=== PATIENT | female | born 1990 | race Caucasian/White ===

== ENCOUNTER 2018-10-27 12:51 | Emergency (ER) | payer BC ==
[~2018-10-27] VITALS: Ht 165.1 cm; Wt 100.2 kg
[~2018-10-27 12:51] MED LIST: IMITREX100 MG PO
--- OUTSIDE RECORDS SUMMARY | 2018-10-27 12:53 | XMS REPORT ---
Author Author Admin, [place] Organization [facility] Address [address] [place] [address] Phone Allergies, Adverse Reactions, Alerts Allergy Name Reaction Description Start Date Severity Status Provider No Known Allergies Amna Quiroz CMA Conditions or Problems Problem Name Problem Code Onset Date Status Entry Date Provider Comment Standard Description Annotate ADHD, PREDOMINANTLY INATTENTIVE PRESENTATION, MILD Active Tia Hudson PHD Attention deficit disorder of childhood without mention of hyperactivity ADHD, PREDOMINANTLY INATTENTIVE PRESENTATION, MODERATE Active Michael Dowell MD Attention deficit disorder of childhood without mention of hyperactivity DEPRESSIVE DISORDER, MAJOR, RECURRENT EPISODE, MODERATE Active Michael Dowell MD Major depressive disorder, recurrent episode, moderate degree Tobacco user 305.1 Active Michael Dowell MD Tobacco use disorder ANXIETY DISORDER, UNSPECIFIED Active 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 Anxiety state, unspecified DEPRESSIVE DISORDER, UNSPECIFIED Active 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 Palpitations 785.1 Active Aren Quiroz MD Palpitations URI 465.9 Active Aren Quiroz MD Acute upper respiratory infections of unspecified site Annual exam V70.0 Active Aren Quiroz MD Routine general medical examination at a health care facility Weight gain 783.1 Active Mckenzie Mai MD Abnormal weight gain Family history of thyroid cancer V16.8 Active Aren Quiroz MD Family history of other specified malignant neoplasm Overweight 278.02 Active Aren Quiroz MD Overweight Chronic low back pain 724.2 Active Aren Quiroz MD Lumbago Migraine 346.90 Active Aren Quiroz MD Migraine, unspecified, without mention of intractable migraine, without mention of status migrainosus Vaccination Against Influenza V04.81 Inactive Aren Quiroz MD Need for prophylactic vaccination and inoculation against influenza Vaccination Against Influenza ICD-V04.81 Inactive Aren Quiroz MD Medication List Medication Instructions Start Date Stop Date Generic Name NDC Status Provider Patient Instruction VYVANSE 40 MG ORAL CAPSULE Take 1 tab By Mouth Every Morning LISDEXAMFETAMINE DIMESYLATE 78393166997 Active Michael Dowell MD Active PROZAC 20 MG ORAL CAPSULE Take 1 tab By Mouth Every Morning FLUOXETINE HCL 74435423289 Active Michael Dowell MD Active SUMATRIPTAN SUCCINATE 100 MG ORAL TABLET take one tab by mouth at outset of migraine; may repeat in 2 hrs if needed SUMATRIPTAN SUCCINATE 72678452796 Active Aren Quiroz MD Active Advance Directives Directive Description Start Date DISCUSSED - NO DECISION MADE Immunizations Vaccine Administration Date Value Standard Description influenza immunization (Flu Vax) has been administered given influenza virus vaccine, unspecified formulation Vital Signs Date Name Value Unit Range Description blood pressure, diastolic 80 mm[Hg] BP lerma blood pressure, systolic 121 mm[Hg] BP sys height E&M 65.50 [in_us] Bdy height pulse rate E&M 77 /min Heart rate weight E&M 226.25 [lb_av] Weight Measured blood pressure, diastolic 78 mm[Hg] BP lerma blood pressure, systolic 113 mm[Hg] BP sys height E&M 65.50 [in_us] Bdy height pulse rate E&M 88 /min Heart rate weight E&M 230 [lb_av] Weight Measured blood pressure, diastolic 84 mm[Hg] BP lerma blood pressure, systolic 136 mm[Hg] BP sys height E&M 65.50 [in_us] Bdy height pulse rate E&M 88 /min Heart rate weight E&M 233.38 [lb_av] Weight Measured blood pressure, diastolic 79 mm[Hg] BP lerma blood pressure, systolic 122 mm[Hg] BP sys height E&M 65.50 [in_us] Bdy height pulse rate E&M 89 /min Heart rate weight E&M 233.25 [lb_av] Weight Measured blood pressure, diastolic 78 mm[Hg] BP lerma blood pressure, systolic 115 mm[Hg] BP sys height E&M 65.50 [in_us] Bdy height pulse rate E&M 92 /min Heart rate respiratory rate E&M 18 /min Resp rate temperature E&M 98 [degF] Body temperature weight E&M 232 [lb_av] Weight Measured blood pressure, diastolic 85 mm[Hg] BP lerma blood pressure, systolic 132 mm[Hg] BP sys height E&M 65.50 [in_us] Bdy height pulse rate E&M 87 /min Heart rate weight E&M 236.50 [lb_av] Weight Measured blood pressure, diastolic 86 mm[Hg] BP lerma blood pressure, systolic 133 mm[Hg] BP sys height E&M 65.5 [in_us] Bdy height pulse rate E&M 110 /min Heart rate weight E&M 234.13 [lb_av] Weight Measured blood pressure, diastolic 84 mm[Hg] BP lerma blood pressure, systolic 122 mm[Hg] BP sys height E&M 65 [in_us] Bdy height pulse rate E&M 101 /min Heart rate respiratory rate E&M 18 /min Resp rate temperature E&M 97.8 [degF] Body temperature weight E&M 229.25 [lb_av] Weight Measured blood pressure, diastolic 86 mm[Hg] BP lerma blood pressure, systolic 126 mm[Hg] BP sys height E&M 65 [in_us] Bdy height pulse rate E&M 101 /min Heart rate respiratory rate E&M 18 /min Resp rate temperature E&M 98.2 [degF] Body temperature weight E&M 229.25 [lb_av] Weight Measured blood pressure, diastolic 81 mm[Hg] BP lerma blood pressure, systolic 123 mm[Hg] BP sys height E&M 65 [in_us] Bdy height pulse rate E&M 96 /min Heart rate respiratory rate E&M 18 /min Resp rate temperature E&M 98.1 [degF] Body temperature weight E&M 230 [lb_av] Weight Measured Diagnostic Results Date Name Value Unit Range Description Lab Report: TSH Rfx on Abnormal to Free T4 - Chemistry thyroid stimulating hormone, serum 1.970 u[iU]/mL 0.450-4.500 Lab Report: CBC With Differential/Platelet, Comp. Metabolic Panel (14), ... - Chemistry very low density lipoproteins 37 mg/dL 5-40 chloride, serum 102 mmol/L 96-106 urea nitrogen, blood 9 mg/dL 6-20 Lab Report: CBC With Differential/Platelet, Comp. Metabolic Panel (14), ... - Urinalysis leukocyte esterase, urine, by dipstick Negative Negative Lab Report: CBC With Differential/Platelet, Comp. Metabolic Panel (14), ... - Hematology mean corpuscular hemoglobin concentration, RBC 33.7 G/DL % 31.5-35.7 erythrocyte (RBC) count 4.29 X10E6/UL 10*6/mm3 3.77-5.28 Lab Report: CBC With Differential/Platelet, Comp. Metabolic Panel (14), ... - Urinalysis urine color Yellow Yellow Lab Report: CBC With Differential/Platelet, Comp. Metabolic Panel (14), ... - Chemistry Absolute Neutrophils 4.4 X10E3/UL 10*3/uL 1.4-7.0 Lab Report: CBC With Differential/Platelet, Comp. Metabolic Panel (14), ... - Urinalysis bilirubin, urine Negative Negative Lab Report: CBC With Differential/Platelet, Comp. Metabolic Panel (14), ... - Chemistry LDL cholesterol, serum 127 mg/dL 0-99 urea nitrogen/creatinine ratio, serum 14 9-23 Lab Report: CBC With Differential/Platelet, Comp. Metabolic Panel (14), ... - Hematology mean corpuscular volume, RBC 94 fL 79-97 Lab Report: CBC With Differential/Platelet, Comp. Metabolic Panel (14), ... - Chemistry HDL cholesterol, serum 41 mg/dL >39 Lab Report: CBC With Differential/Platelet, Comp. Metabolic Panel (14), ... - Hematology monocytes as percent of blood leukocytes 5 % Not Estab. Lab Report: CBC With Differential/Platelet, Comp. Metabolic Panel (14), ... - Chemistry albumin/globulin ratio, serum 1.7 1.2-2.2 creatinine, serum 0.66 mg/dL 0.57-1.00 cholesterol, serum 205 mg/dL 401-486 7218/06/19 bilirubin, serum, total 0.5 mg/dL 0.0-1.2 Lab Report: CBC With Differential/Platelet, Comp. Metabolic Panel (14), ... - Hematology Eosinophil Absolute Count 0.5 X10E3/UL 10*3/uL 0.0-0.4 Lab Report: CBC With Differential/Platelet, Comp. Metabolic Panel (14), ... - Urinalysis appearance, urine Clear Clear Lab Report: CBC With Differential/Platelet, Comp. Metabolic Panel (14), ... - Chemistry aspartate aminotransferase (SGOT), serum 15 U/L 0-40 Lab Report: CBC With Differential/Platelet, Comp. Metabolic Panel (14), ... - Hematology red blood cell distribution width 13.1 % 12.3-15.4 Lab Report: CBC With Differential/Platelet, Comp. Metabolic Panel (14), ... - Urinalysis urinalysis, microscopic examination MICNIP Lab Report: CBC With Differential/Platelet, Comp. Metabolic Panel (14), ... - Hematology leukocyte count, blood 8.6 X10E3/UL 10*3/mm3 3.4-10.8 Lab Report: CBC With Differential/Platelet, Comp. Metabolic Panel (14), ... - Urinalysis pH, urine, semiquantitative 6.0 5.0-7.5 Lab Report: CBC With Differential/Platelet, Comp. Metabolic Panel (14), ... - Chemistry potassium, serum 4.5 mmol/L 3.5-5.2 immature granulocytes, percentage of total cells, blood 0 % Not Estab. albumin, serum 4.4 g/dL 3.5-5.5 Lab Report: CBC With Differential/Platelet, Comp. Metabolic Panel (14), ... - Hematology lymphocyte count, blood, automated 3.2 X10E3/UL 10*3/mm3 0.7-3.1 hematocrit, blood 40.3 % 34.0-46.6 Lab Report: CBC With Differential/Platelet, Comp. Metabolic Panel (14), ... - Chemistry sodium, serum 140 mmol/L 134-144 Lab Report: CBC With Differential/Platelet, Comp. Metabolic Panel (14), ... - Hematology neutrophils as percent of blood leukocytes 52 % Not Estab. basophils as percent of blood leukocytes 0 % Not Estab. Lab Report: CBC With Differential/Platelet, Comp. Metabolic Panel (14), ... - Chemistry specific gravity, body fluid 1.019 1.005-1.030 Lab Report: CBC With Differential/Platelet, Comp. Metabolic Panel (14), ... - Urinalysis protein, urine, semiquantitative (dipstick) Negative Negative/Trace Lab Report: CBC With Differential/Platelet, Comp. Metabolic Panel (14), ... - Chemistry carbon dioxide, venous blood 22 mmol/L 20-29 nitrate, urine Negative Negative triglyceride, serum, fasting 185 mg/dL 0-149 calcium, serum 9.3 mg/dL 8.7-10.2 alanine aminotransferase (SGPT), serum 16 U/L 0-32 Lab Report: CBC With Differential/Platelet, Comp. Metabolic Panel (14), ... - Hematology mean corpuscular hemoglobin, RBC 31.7 pg 26.6-33.0 Lab Report: CBC With Differential/Platelet, Comp. Metabolic Panel (14), ... - Chemistry protein, total, serum 7.0 g/dL 6.0-8.5 alkaline phosphatase, serum 55 U/L 39-117 Lab Report: CBC With Differential/Platelet, Comp. Metabolic Panel (14), ... - Hematology hemoglobin, blood 13.6 g/dL 11.1-15.9 lymphocytes as percent of blood leukocytes 37 % Not Estab. Lab Report: CBC With Differential/Platelet, Comp. Metabolic Panel (14), ... - Urinalysis glucose, urine, semiquantitative Negative Negative Lab Report: CBC With Differential/Platelet, Comp. Metabolic Panel (14), ... - Genetics/fertility eGFR if 140 mL/min/1.73m2 >59 Lab Report: CBC With Differential/Platelet, Comp. Metabolic Panel (14), ... - Hematology basophil count, absolute 0.0 x10E3/uL 0.0-0.2 Lab Report: CBC With Differential/Platelet, Comp. Metabolic Panel (14), ... - Chemistry globulin, serum 2.6 1.5-4.5 Estimated Glomerular Filtration Rate (calc) 121 mL/min/1.73m2 >59 Lab Report: CBC With Differential/Platelet, Comp. Metabolic Panel (14), ... - Basic Occult Blood, urine Negative Negative Lab Report: CBC With Differential/Platelet, Comp. Metabolic Panel (14), ... - Hematology eosinophils as percent of blood leukocytes 6 % Not Estab. Lab Report: CBC With Differential/Platelet, Comp. Metabolic Panel (14), ... - Chemistry blood glucose, random 83 mg/dL 65-99 Lab Report: CBC With Differential/Platelet, Comp. Metabolic Panel (14), ... - Urinalysis urobilinogen, urine, semiquantitative (dipstick) 0.2 0.2-1.0 Lab Report: CBC With Differential/Platelet, Comp. Metabolic Panel (14), ... - Hematology monocyte count, blood, automated 0.5 X10E3/UL 10*3/uL 0.1-0.9 platelet count 301 X10E3/UL 10*3/mm3 150-379 Lab Report: CBC With Differential/Platelet, Comp. Metabolic Panel (14), ... 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 Patient Exp Problem - 48243 Michael Dowell MD CPT-20153 [facility] 13:32:55 B[employer] HELPER MACHINE Est Patient Exp Problem - 14089 Aren Quiroz MD CPT-08327 [facility] 14:39:29 B[employer]LL[employer] HELPER MACHINE Est Patient Exp Problem - 25137 Michael Dowell MD CPT-46661 [facility] 14:43:12 CDT Est Patient Exp Problem - 47338 Aren Quiroz MD CPT-89438 [facility] 09:41:44 CDT Est Patient Exp Problem - 31348 Aren Quiroz MD CPT-57360 [facility] 10:21:29 B[employer]LL[employer] HELPER MACHINE Est Patient Problem Focus - 74677 Mckenzie Mai MD CPT-57991 [facility] 16:36:31 B[employer] CELL[employer] HELPER MACHINE Est Patient Exp Problem - 51741 Aren Quiroz MD CPT-34005 [facility] 13:41:43 CDT Est Patient Exp Problem - 13296 Aren Quiroz MD CPT-45313 [facility] 09:03:48 CDT New Patient Detailed - 07081 Aren Quiroz MD CPT-50233 [facility] Procedures Code Procedure Name Date Entry Date Standard Description CPT-65035 85609 - Psychological testing evaluation services each additional hour/TESTING FEEDBACK 15:23:17 CDT CPT-10692 16304 - Psychological Test administration and scoring each additional 30 min 08:37:04 CDT CPT-38018 95007 - Psychological Test administration and scoring 1st 30min 08:37:04 CDT CPT-28229 17725 - Psychological testing evaluation services each additional hour/TESTING FEEDBACK 08:37:03 CDT CPT-63219 48129 - Psychological testing evaluation services 1st hour 08:37:03 CDT CPT-98581 Psychotherapy 30 (16-37*) min - 26880 (with patient and/or family member) 11:35:05 B[employer] AND CELLOPHAN[employer] HELPER MACHINE CPT-79202 Psychotherapy 45 (38-52*) min - 16312 (with patient and/or family member) 11:28:00 B[employer]ER AND CELLOPH[employer]ER HELPER MACHINE CPT-18797 Diagnostic evaluation with medical - 79398 12:10:11 B[employer]ER AND CELLOPH[employer]ER HELPER MACHINE CPT-08305 Psychotherapy 45 (38-52*) min - 04807 (with patient and/or family member) 10:32:39 B[employer] AND CELLOPH[employer]ER HELPER MACHINE CPT-90936 Psychotherapy 45 (38-52*) min - 43276 (with patient and/or family member) 23:11:08 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
[2018-10-27] MEDS ORDERED: SODIUM CHLORIDE 0.9% 1000ML 1,000 ML IV STA (13:14)
[2018-10-27] MEDS ORDERED: VIVANZ PO (13:17)
[2018-10-27] MEDS ORDERED: ONDANSETRON HCL INJ 2MG/ML 2ML 2 MG/ML VIAL ONE (13:23)
[2018-10-27] MEDS ORDERED: SODIUM CHLORIDE 0.9% 1000ML 1,000 ML ONE (13:23)
[2018-10-27] MEDS ORDERED: FAMOTIDINE 20 MG/2 ML VIAL IV ONE ×2 (13:24→13:30)
[2018-10-27] MEDS ORDERED: ONDANSETRON HCL INJ 2MG/ML 2ML 2 MG/ML VIAL IV ONE (13:30)
[2018-10-27] MEDS ORDERED: IOPAMIDOL 370 MG/ML 200 ML INFUS..BTL INJ ONE (13:48)
[2018-10-27] MEDS ORDERED: SODIUM CHLORIDE 0.9% 50ML 50 ML ONE (13:48)
--- NOTE | 2018-10-27 14:42 | Diagnostic Imaging Report ---
EXAMINATION: CT of the abdomen and pelvis with contrast. TECHNIQUE: Spiral CT images of the abdomen and pelvis were performed from the lung bases to the lesser trochanters after the intravenous administration of 100 cc of Isovue 370 and the oral administration of 1. Coronal and sagittal reformatted images were obtained. COMPARISON: None. CLINICAL HISTORY:Abdominal pain DISCUSSION: ABDOMEN/PELVIS: LOWER THORAX:2-3 mm pulmonary nodule in the lateral right lower lobe (series 2, image 6). Lung bases are otherwise clear. Bilateral breast implants. HEPATOBILIARY: Decreased attenuation of the hepatic parenchyma compared to the spleen, consistent with steatosis. Liver size is normal. No focal lesions. No intra or extrahepatic biliary ductal dilation. GALLBLADDER: No radio-opaque stones or sludge. No wall thickening. SPLEEN: No splenomegaly. 1.7 cm splenule. PANCREAS: No focal masses or ductal dilatation. ADRENALS: No adrenal nodules. KIDNEYS/URETERS: Punctate nonobstructing calculus in the left superior to mid aspect (series 2, image 30). No other renal or ureteral calculi, hydronephrosis or obstruction. No solid enhancing masses. PELVIC ORGANS/BLADDER: Bladder and uterus are unremarkable. No adnexal masses. PERITONEUM/RETROPERITONEUM: No free air or fluid. LYMPH NODES: No intra-abdominal, retroperitoneal, pelvic or inguinal lymphadenopathy. VESSELS: The celiac trunk,superior and inferior mesenteric and bilateral renal arteries are patent The portal, superior mesenteric and splenic veins are patent. GI TRACT: No bowel dilation or evidence of obstruction. Appendix is well identified and normal in caliber. No pericolonic inflammatory changes. BONES AND SOFT TISSUE: No aggressive lytic lesions. Small fat-containing umbilical hernia. Soft tissues are otherwise unremarkable. IMPRESSION: 1. No acute abdominopelvic abnormalities. 2. Hepatic steatosis. 3. 2-3 mm pulmonary nodule in the lateral right lower lobe. If patient is low risk, no further follow-up is indicated per Fleischner Society 2017 guidelines. Signed by: Dr. Sacha Harrell M.D. on 10/27/2018 2:38 PM
[2018-10-27 15:45] VITALS: BP 130/80
== END 2018-10-27 15:38 | disposition home or self-care (01) ==
LOC: FSED 12:51
DX: R10.13 Epigastric pain (principal); R10.11 Right upper quadrant pain; R11.0 Nausea; R19.7 Diarrhea, unspecified; K92.1 Melena
CPT/HCPCS: 74177; 80048; 80076; 81003; 81025; 85025; 96374; 96375; 99284; J2405; J7030; Q9967